=== PATIENT | female | born 1965 | race Caucasian/White ===

== ENCOUNTER 2021-01-10 10:54 | Outpatient (RCR) | payer BC, SELFPAY ==
[2020-01-14 11:08] VITALS: BMI 22.6
[2021-01-10] MEDS: COVID-19 VACC, MRNA(PFIZER)/PF 30 MCG/0.3 ML SYRINGE IM (11:11)
[2021-01-31] MEDS: COVID-19 VACC, MRNA(PFIZER)/PF 30 MCG/0.3 ML SYRINGE IM (11:09)
== END 2021-04-04 23:59 ==
LOC: IMMUN 10:54
PROVIDERS: PCP Family Medicine Sports Medicine; Visit Provider Family Medicine
DX: Z23 Encounter for immunization (principal)
CPT/HCPCS: 0001A; 0002A; 91300

== ENCOUNTER 2021-02-10 13:02 | Emergency (ER) | payer BC, SELFPAY ==
[2021-01-12 10:07] VITALS: BMI 22.1
[2021-02-10 13:04] VITALS: BP 153/74; PULSE 62; RESP 18; TEMP 36.7; O2SAT 100; BMI 21.7
--- NOTE | 2021-02-10 13:16 | ED.VIS.GEN ---
History of Present Illness Chief Complaint: Edema Informant: Patient Onset: Today Context: Gradual Onset Timing: Continuous Current Severity: Moderate Maximum Severity: Severe Narrative: Patient is a 55-year-old female is otherwise healthy the presents to the emergency department right facial swelling. Patient states she woke this morning, and felt like her right jaw area was swollen. She states that it seemed to resolve. She states that she then went to have lunch. She states immediately when she started to eat, she got rather significant swelling in the right side of her face. She thought she may be having allergic reaction. She states by the time she got here, the swelling seemed to decrease. She denies any trouble opening her mouth. She denies any fevers or chills. She is otherwise been in her normal state of health. Prior similar symptoms: No Recent Illness/Hospitalization: No Past Medical History - Allergies and Home Meds Allergies/Adverse Reactions: Allergies codeine Allergy (Severe, Verified 02/10/21 13:08) Unknown mental status change latex Allergy (Severe, Verified 02/10/21 13:08) Itching swelling Penicillins Allergy (Severe, Verified 02/10/21 13:08) Hives trospium Allergy (Severe, Verified 02/10/21 13:08) Swelling eyes buspirone Allergy (Unknown, Verified 02/10/21 13:08) Rash lodine Allergy (Unknown, Uncoded 02/10/21 13:08) Unknown mental status change Primary Care Physician: Sabrina Chatterjee MD [Primary Care Provider] - Prior records reviewed: Yes Past Medical History: - - MS Surgical History: noncontributory Smoking Status: Never smoker Review of Systems General: Denies: Chills, Fever, Sweats Eyes: Denies: Visual changes - bilaterally, Diplopia ENT: Denies: Rhinorrhea, Sore throat Cardiovascular: Denies: Chest pain, Palpitations Respiratory: Denies: Dyspnea, Cough, Dyspnea on exertion Gastrointestinal: Denies: Abdominal pain, Nausea, Vomiting, Diarrhea, Melena, Hematochezia Genitourinary: Denies: Dysuria, Hematuria, Frequency Musculoskeletal: Denies: Back pain, Extremity Pain Skin: Denies: Rash, Wounds Neurological: Denies: Headache, Weakness, Numbness Physical Exam Vital Signs/Narrative: Vital Signs Temp Pulse Resp BP Pulse Ox 02/10/21 13:04 98.0 F 62 18 153/74 H 100 Inital Vital Signs reviewed: Yes General: Well nourished, Well developed, No Acute Distress Head: Normocephalic, Atraumatic Eyes: Perrl, EOMI ENT: Moist mucous membranes, No rhinorrhea, - - Patient has edema of the right parotid gland. There is no purulence that can be expressed. Neck: Supple, Nontender Cardiovascular: Regular rate, Regular rhythm, No murmurs Respiratory: No distress, CTA bilaterally, Chest nontender Abdomen: Soft, Nontender, Nondistended, Normal bowel sounds Back: Nontender, Normal Inspection Extremities: Nontender, No edema Skin: Normal color, No rash Neurological: Alert, Oriented x3, Cranial nerves II-XII grossly intact, Normal Strength, Normal Sensation Psychological: Normal affect, Normal Mood Diagnostic/Tx/Re-eval - Medical Decision Making Clinically, the patient symptoms do seem most consistent with sialoadenitis. There is no purulence. After she had stopped eating, the swelling seemed to go down. It was acute onset. Patient was counseled on gentle massage and using tart foods to increase elevation. Due to concern for impaction, will place her on clindamycin as she has penicillin allergy. I did breastfeeding peer counselor her that if this worsens or is not improving to follow-up with ENT. She is comfortable with this plan of care. Impression 1. Sialoadenitis ED Disposition - Plan for ED Patient: Instructions: ED Salivary Gland Stones Prescriptions: Clindamycin HCl [Cleocin] 300 mg PO Q6H #28 capsule Prescription Printed Fluconazole [Diflucan] 150 mg PO X1 #1 tablet Prescription Printed Referrals: Sabrina Chatterjee MD [Primary Care Provider] -
== END 2021-02-10 13:41 | disposition home or self-care (01) ==
LOC: ED 13:23
PROVIDERS: Emergency Provider Emergency Medicine; PCP Family Medicine Sports Medicine
DX: K11.20 Sialoadenitis, unspecified (principal)
CPT/HCPCS: 99282

== ENCOUNTER → 2021-03-24 10:19 | Outpatient (CLI) | payer BC, SELFPAY ==
[2021-03-24 13:37] LABS: T4 Free Direct 1.17 ng/dL (0.76-1.46); Thyroid Stim Hormone (TSH) 0.85 uIU/mL (0.358-3.74)
== END ==
PROVIDERS: PCP Family Medicine Sports Medicine; Visit Provider Internal Medicine Endocrinology, Diabetes & Metabolism
DX: E03.8 Other specified hypothyroidism (principal); E06.3 Autoimmune thyroiditis
CPT/HCPCS: 36415; 84439; 84443

== ENCOUNTER → 2022-06-01 | Outpatient (CLI) | payer BC, SELFPAY ==
[2022-06-01 15:41] LABS: T4 Free Direct 1.19 ng/dL (0.76-1.46); Thyroid Stim Hormone (TSH) 1.59 uIU/mL (0.358-3.74)
== END | disposition home or self-care (01) ==
LOC: BIMLAB 13:22
PROVIDERS: PCP Family Medicine Sports Medicine; Referring Provider Internal Medicine Endocrinology, Diabetes & Metabolism; Visit Provider Internal Medicine Endocrinology, Diabetes & Metabolism
DX: E03.8 Other specified hypothyroidism (principal); E06.3 Autoimmune thyroiditis
CPT/HCPCS: 36415; 84439; 84443